=== PATIENT | female | born 1985 | race Caucasian/White ===

== ENCOUNTER 2017-05-31 19:05 | Observation (INO) ==
[2017-05-31] MEDS ORDERED: HYDROmorphone 2 MG/1 ML VIAL IM STA (23:58)
[2017-05-31] MEDS ORDERED: ONDANSETRON 4 MG/2 ML VIAL IM STA (23:59)
[2017-06-01] MEDS ORDERED: DIPH/TET/ACEL PERT BOOSTER VACCINE 0.5 ML VIAL IM ONE ×2 (00:03→00:39)
[2017-06-01] MEDS ORDERED: HYDROmorphone 2 MG/1 ML VIAL IV STA ×2 (00:04→00:58)
[2017-06-01] MEDS ORDERED: ONDANSETRON 4 MG/2 ML VIAL IV STA ×2 (00:04→00:58)
[2017-06-01] MEDS ORDERED: ONDANSETRON 4 MG/2 ML VIAL ONE ×4 (00:18→13:44)
[2017-06-01] MEDS ORDERED: HYDROmorphone 2 MG/1 ML VIAL ONE ×3 (00:19→13:44)
[2017-06-01] MEDS ORDERED: LIDOCAINE 1%/EPI INJ 20 ML VIAL ONE (00:19)
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
[2017-06-01] MEDS ORDERED: ONDANSETRON 4 MG/2 ML VIAL IV PRN ×2 (00:37→13:51)
[2017-06-01] MEDS ORDERED: ACETAMINOPHEN 325 MG TABLET PO PRN (00:37)
[2017-06-01] MEDS ORDERED: LORazepam 2 MG/1 ML VIAL IV STA (00:58)
[2017-06-01] MEDS ORDERED: LORazepam 2 MG/1 ML VIAL ONE (01:07)
[2017-06-01] MEDS ORDERED: DIAZEPAM 10 MG/2 ML SYRINGE IV STA (01:43)
[2017-06-01] MEDS ORDERED: DIAZEPAM 10 MG/2 ML SYRINGE ONE (01:51)
[2017-06-01] MEDS ORDERED: ceFAZolin 1,000 MG VIAL ONE (02:07)
[2017-06-01] MEDS ORDERED: SODIUM CHLORIDE 0.9% 100 ML IV ONE (02:08)
[2017-06-01] MEDS ORDERED: DIAZEPAM 5 MG TABLET PO ONE (02:30)
[2017-06-01] MEDS: HYDROmorphone 2 MG/1 ML VIAL IV PRN ×5 (04:19→16:36)
[2017-06-01] MEDS: DEXTROSE 5% NACL 0.45% 1,000 ML IV SCH ×2 (06:15→15:32)
[2017-06-01 08:55] LABS: Basophils % 0.2 % (0.0-0.8); Eosinophils # 0.1 10*3/uL (0.0-0.87); Eosinophils % 0.4 % (0.00-10.9); Hematocrit 34.5 VOL% (35.7-47.0); Immature Granulocytes % 0.8 %; Immature Granulocytes Absolute 0.17 #; Lymphocytes # 1.3 10*3/uL (1.4-4.0); Mean Corpuscular HGB Conc 34.8 GM/DL (32-36); Mean Corpuscular Hemoglobin 30 PG (27-34); Mean Corpuscular Volume 87.1 FL (87-102); Mean Platelet Volume 9.8 FL (9.6-12.0); Monocytes # 0.9 10*3/uL (0.11-0.8); Monocytes % 4.1 % (1.7-12.7); Neutrophils # 19.7 10*3/uL (1.4-7.4); Neutrophils % 88.5 % (38.7-73.9); Platelet Count 307 T/CUMM (130-400); Red Blood Count 3.96 MC/CUMM (3.8-5.5); Red Cell Distribution Width 14.3 % (9.3-17.3); White Blood Count 22.2 T/CUMM (4-12)
[2017-06-01 09:18] LABS: Band Neutrophils 5 % (0-10); Burr Cells Slight; Hypochromasia 1+; Lymphocytes 2 % (20-55); Platelet Estimate Adequate; Segmented Neutrophils 90 % (50-85); Total Cells Counted 100
[2017-06-01 09:25] LABS: Albumin 3.4 G/DL (3.4-5.0); Bilirubin,Total 0.5 MG/DL (0.2-1.0); Calcium 8.5 MG/DL (8.5-10.1); Magnesium 2.2 MG/DL (1.8-2.4); Osmolality,Calculated 273.8 MOS/KG (273-304); Potassium 3.8 MMOL/L (3.5-5.1); Total Protein 6.3 G/DL (6.4-8.3)
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
[2017-06-01] MEDS ORDERED: SODIUM CHLORIDE 0.9% 1,750 ML IV ONE (10:22)
[2017-06-01] MEDS ORDERED: THIAMINE INJ 100 MG, FOLIC ACID INJ 1 MG, MULTIVITAMIN INJ 10 ML in SODIUM CHLORIDE 0.9... IV ONE (10:37)
[2017-06-01] MEDS ORDERED: LORazepam 2 MG/1 ML VIAL IV PRN (10:37)
--- NOTE | 2017-06-01 10:40 | EKG Report ---
Stationary ECG Study [facility] Test Date: 06/01/2017 10:42:46 AM Pat Name: BERTHA LALA Department: Room: 339 Gender: F Crew Mess Attendant: PHILIP : 1985 Requested by: Michelle Germain Order Number: [id number] Reading MD: JUAN ANTONIO WALTERS Intervals Bryant Rate: 95 P: 66 AL: 136 QRS: 61 QRSD: 93 T: 63 QT: 337 QTc: 390 Interpretive Statements SINUS RHYTHM INCOMPLETE RIGHT BUNDLE BRANCH BLOCK Electronically Signed On 06-02-17 05:34:44 CDT by JUAN ANTONIO WALTERS [email or web address]
[2017-06-01] MEDS ORDERED: LIDOCAINE 1% 5 ML VIAL ONE (11:50)
[2017-06-01] MEDS: LACTATED RINGERS 1,000 ML IV SCH ×5 (11:50→16:58)
[2017-06-01] MEDS ORDERED: PROPOFOL 200 MG/20 ML VIAL IV ONE (11:50)
[2017-06-01] MEDS ORDERED: PHENYLEPHRINE 1 MG/10 ML SYRINGE IV ONE (11:50)
[2017-06-01] MEDS ORDERED: SUCCINYLCHOLINE 200 MG/10 ML VIAL ONE (11:50)
[2017-06-01] MEDS: PIPERACILLIN/TAZOBACTAM 3,375 MG in SODIUM CHLORIDE 0.9% 100 ML IV SCH ×2 (12:02→20:23)
[2017-06-01] MEDS ORDERED: SILVER SULFADIAZINE 1% CREAM 400 GM JAR TOP ONE (12:29)
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
[2017-06-01] MEDS ORDERED: MEPERIDINE 25 MG/1 ML VIAL ONE (13:44)
[2017-06-01] MEDS: MEPERIDINE 25 MG/1 ML VIAL IV PRN (13:45)
[2017-06-01] MEDS ORDERED: SEVOFLURANE 1 UNIT/15 MINUTE INH ONE (13:56)
[2017-06-01] MEDS ORDERED: fentaNYL 100 MCG/2 ML VIAL ONE (13:56)
[2017-06-01] MEDS ORDERED: MIDAZOLAM 2 MG/2 ML VIAL ONE (13:56)
[2017-06-01] MEDS ORDERED: diphenhydrAMINE 50 MG/1 ML VIAL ONE (14:06)
[2017-06-01] MEDS ORDERED: diphenhydrAMINE 50 MG/1 ML VIAL IV ONE (14:06)
[2017-06-01] MEDS: DOXYCYCLINE HYCLATE 100 MG CAPSULE PO SCH ×2 (16:25→20:20)
[2017-06-01] MEDS: VENLAFAXINE 75 MG TABLET PO SCH (16:25)
[2017-06-01] MEDS: clonazePAM 0.5 MG TABLET PO PRN (20:26)
[2017-06-02] MEDS: HYDROmorphone 2 MG/1 ML VIAL IV PRN ×3 (01:00→14:18)
[2017-06-02] MEDS: DIAZEPAM 10 MG/2 ML SYRINGE IV PRN ×2 (01:02→15:47)
[2017-06-02] MEDS: PIPERACILLIN/TAZOBACTAM 3,375 MG in SODIUM CHLORIDE 0.9% 100 ML IV SCH ×2 (03:43→12:24)
[2017-06-02] MEDS: LACTATED RINGERS 1,000 ML IV SCH ×3 (03:44→14:14)
[2017-06-02 05:16] LABS: Basophils % 0.2 % (0.0-0.8); Eosinophils # 0.1 10*3/uL (0.0-0.87); Hematocrit 31.4 VOL% (35.7-47.0); Hemoglobin 10.6 GM/DL (12.0-16.0); Immature Granulocytes % 0.5 %; Immature Granulocytes Absolute 0.06 #; Lymphocytes # 1.8 10*3/uL (1.4-4.0); Lymphocytes % 15.6 % (21.3-54.2); Mean Corpuscular HGB Conc 33.8 GM/DL (32-36); Mean Corpuscular Hemoglobin 30 PG (27-34); Mean Corpuscular Volume 88.2 FL (87-102); Mean Platelet Volume 9.7 FL (9.6-12.0); Monocytes # 0.7 10*3/uL (0.11-0.8); Monocytes % 5.8 % (1.7-12.7); Neutrophils % 76.9 % (38.7-73.9); Platelet Count 249 T/CUMM (130-400); Red Blood Count 3.56 MC/CUMM (3.8-5.5); White Blood Count 11.7 T/CUMM (4-12)
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
[2017-06-02] MEDS: clonazePAM 0.5 MG TABLET PO PRN (08:22)
[2017-06-02] MEDS: VENLAFAXINE 75 MG TABLET PO SCH (08:23)
[2017-06-02] MEDS: DOXYCYCLINE HYCLATE 100 MG CAPSULE PO SCH (08:23)
--- NOTE | 2017-06-02 08:42 | Event Note ---
Allergy to ASA precludes NSAIDS and Toradol. Will start scheduled tylenol to supplement pain. CORE MEASURES ABSTRACTOR does not show anybody writing opioids so pos UDS means likely illicit source.
[2017-06-02] MEDS: ACETAMINOPHEN 325 MG TABLET PO SCH ×2 (10:10→14:18)
[2017-06-02] MEDS: MEPERIDINE 25 MG/1 ML VIAL IV PRN (12:24)
[2017-06-02] MEDS ORDERED: HYDROmorphone 2 MG/1 ML VIAL IV ONE (15:33)
[2017-06-02] MEDS ORDERED: SILVER SULFADIAZINE 1% CREAM 25 GM TUBE TOP ONE (16:13)
[2017-06-02 16:16] VITALS: BP 110/74
[2017-06-02] MEDS ORDERED: SILVER SULFADIAZINE 1% CREAM 400 GM JAR TOP ONE (16:30)
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
== END 2017-06-02 18:00 | disposition home or self-care (01) ==
LOC: N.ED 19:05 → N.3E 19:05
PROVIDERS: ADMIT Surgery; ATTEND Surgery